=== PATIENT | male | born 1960 | race Caucasian/White ===

== ENCOUNTER 2017-06-01 09:07 | Day surgery (SDC) | payer MEDICARE, OTHER ==
[2017-06-01] MEDS ORDERED: DEXTROSE 50% 50 ML SYRINGE (10:21)
[2017-06-01] MEDS ORDERED: PROPOFOL 20 ML (10:46)
== END 2017-06-01 11:49 | disposition home or self-care (01) ==
LOC: GIL 09:07
DX: Z12.11 Encounter for screening for malignant neoplasm of colon (principal); K64.8 Other hemorrhoids; D12.3 Benign neoplasm of transverse colon; E11.9 Type 2 diabetes mellitus without complications; E66.01 Morbid (severe) obesity due to excess calories; Z68.38 Body mass index [BMI] 38.0-38.9, adult
CPT/HCPCS: 45380; 82962; 88305

== ENCOUNTER 2017-06-12 13:39 | Emergency (ER) | payer MEDICARE, OTHER ==
[2017-06-12] MEDS ORDERED: DEXTROSE 50% 50 ML SYRINGE (13:45)
[2017-06-12] MEDS: SOD CHLORIDE 0.9% 500 ML IV ×2 (14:00→17:10)
[2017-06-12] MEDS: SOD CHLORIDE 0.9% 100 ML (14:11)
[2017-06-12] MEDS: IOHEXOL 300MG/ML 150 ML BTL (14:11)
[2017-06-12 14:19] LABS: ADD MAN DIFF? NO
[2017-06-12 14:21] LABS: WHITE BLOOD COUNT 17.1 10^3/ul (4.8-10.8)
[2017-06-12 14:21] LABS: ABNORMAL IP MESSAGE 1; BASOPHIL # 0.1 10^3/ul (0.0-0.1); BASOPHILS % 0.6 % (0.0-2.0); EOSINOPHILS # 0.3 10^3/ul (0.0-0.5); EOSINOPHILS % 1.5 % (0.0-7.0); HEMATOCRIT 42.7 % (42.0-52.0); HEMOGLOBIN 13.7 g/dl (14.0-18.0); LYMPHOCYTES # 3.2 10^3/ul (0.8-2.9); LYMPHOCYTES % 18.9 % (15.0-51.0); MEAN CORPUSCULAR HEMOGLOBIN 30.3 pg (29.0-33.0); MEAN CORPUSCULAR HGB CONC 32.1 g/dl (32.0-37.0); MEAN CORPUSCULAR VOLUME 94.5 fl (82.0-101.0); MEAN PLATELET VOLUME 11.6 fl (7.4-10.4); MONOCYTE # 1.7 10^3/ul (0.3-0.9); MONOCYTES % 9.9 % (0.0-11.0); NEUTROPHIL # 11.7 10^3/ul (1.6-7.5); NEUTROPHILS % 68.5 % (39.0-77.0); PLATELET COUNT 278 10^3/UL (140-415); POSITIVE DIFF @See below; RED BLOOD COUNT 4.52 10^6/ul (4.70-6.10); RED CELL DISTRIBUTION WIDTH 13.5 % (11.5-14.5)
[2017-06-12 14:25] LABS: INR 0.85; PROTIME 11.7 Sec (11.9-14.9); PT RATIO 0.9
[2017-06-12 14:26] LABS: PARTIAL THROMBOPLASTIN TIME 30.1 Sec (25.0-35.0)
[2017-06-12 14:27] LABS: ANION GAP 20 (8-16); BLOOD UREA NITROGEN 29 mg/dl (7-20); CALCIUM 9.8 mg/dl (8.4-10.2); CARBON DIOXIDE 20 mmol/L (21-31); CHLORIDE 112 mmol/L (97-110); CREATININE 0.97 mg/dl (0.61-1.24); POTASSIUM 4.5 mmol/L (3.5-5.1); SODIUM 147 mmol/L (135-144)
[2017-06-12 14:32] LABS: GLUCOSE 33 mg/dl (70-220)
[2017-06-12] MEDS: DEXTROSE 50% 50 ML SYRINGE IV (15:01)
[2017-06-12 18:37] LABS: ANION GAP 17 (8-16); BLOOD UREA NITROGEN 25 mg/dl (7-20); CALCIUM 9.2 mg/dl (8.4-10.2); CARBON DIOXIDE 23 mmol/L (21-31); CHLORIDE 111 mmol/L (97-110); CREATININE 0.89 mg/dl (0.61-1.24); GLUCOSE 94 mg/dl (70-220); POTASSIUM 4.7 mmol/L (3.5-5.1); SODIUM 146 mmol/L (135-144)
== END 2017-06-12 19:56 | disposition home or self-care (01) ==
LOC: E/R 13:39
DX: E11.649 Type 2 diabetes mellitus with hypoglycemia without coma (principal); E86.0 Dehydration; I10 Essential (primary) hypertension; S30.811A Abrasion of abdominal wall, initial encounter; R93.0 Abnormal findings on diagnostic imaging of skull and head, not elsewhere classified; V87.7XXA Person injured in collision between other specified motor vehicles (traffic), initial encounter; Z79.4 Long term (current) use of insulin
CPT/HCPCS: 70450; 71260; 74177; 76937; 80048; 82962; 85025; 85610; 85730; 96361; 96374; 99285-25